=== PATIENT | female | born 1985 | race Caucasian/White ===

== ENCOUNTER → 2016-08-26 | Outpatient (CLI) | payer BC ==
--- NOTE | 2016-08-26 14:51 | DI ---
[facility] LOCATION,08/26/2016 12:44 PM: Clinical History: Patient status post section Previous Exam: None at this facility. Findings: Multiple grayscale and color Doppler sonographic images are obtained through the pelvis demonstrating a single live intrauterine gestation in vertex presentation. Amniotic fluid level is subjectively no rmal. The cervix is long and closed measuring 5.7 cm in length. Detected Doppler heart tones measure 128 beats per minute. The placenta is anterior and grade 0 without evidence of accreta. Impression: No evidence of accreta.
== END ==
LOC: US 12:40
PROVIDERS: ATTEND Obstetrics & Gynecology
DX: Z36 Encounter for antenatal screening of mother (principal); Z3A.34 34 weeks gestation of pregnancy
CPT/HCPCS: 76815

== ENCOUNTER → 2016-08-26 | Outpatient (CLI) | payer BC | LOC: MOB LAB 14:50 | PROVIDERS: ATTEND Obstetrics & Gynecology | DX: Z36 Encounter for antenatal screening of mother (principal); Z3A.34 34 weeks gestation of pregnancy | CPT/HCPCS: 87150 ==

== ENCOUNTER 2016-09-09 14:20 | Outpatient (CLI) | payer BC ==
[2016-09-09] MEDS ORDERED: NORMAL SALINE 10 ML SYRINGE FLUSH IVP PRN (14:28)
[2016-09-09 16:01] VITALS: RESP 20; TEMP 98.5
[2016-09-09 16:33] LABS: BILIRUBIN,URINE NEGATIVE (NEG); CLARITY,URINE CLEAR (CLEAR); GLUCOSE, URINE (UA) NEGATIVE (NEG); LEUKOCYTE ESTERASE ,URINE TRACE (NEG); NITRATE,URINE NEGATIVE (NEG); OCCULT BLOOD,URINE Trace-intact (NEG); PH,URINE 6.5 (5.0-8.5); PROTEIN,URINE NEGATIVE (NEG); UROBILINOGEN,URINE 0.2 EU/dL (0.2)
[2016-09-09 16:51] LABS: URINE SAMPLE TYPE CLEAN CATCH URINE
[2016-09-09 16:53] LABS: BACTERIA,URINE FEW; SQUAMOUS EPITHELIAL CELL,UR FEW
--- NOTE | 2016-09-09 22:45 | DI ---
LIMITED OBSTETRICAL ULTRASOUND FOR BIOPHYSICAL PROFILE, 09/09/2016 2:58 PM Clinical History: Abnormal NST indicating distress. Previous Exam: 08/26/2016. ADJUSTED LMP: 12/27/2015. DAVID: 20.8 cm. Heart Rate: 124 Respiration Score: 2 Fine Motor Score: 2 Gross Motor Score: 2 Amnionic Fluid Score: 2 Reading: Biophysical Profile Score: 8/8
== END 2016-09-09 16:25 | disposition home or self-care (01) ==
LOC: OBOP 14:20
PROVIDERS: ATTEND Obstetrics & Gynecology
DX: O76 Abnormality in fetal heart rate and rhythm complicating labor and delivery (principal); Z3A.36 36 weeks gestation of pregnancy
CPT/HCPCS: 59025; 76818; 81001; 81003; 99211

== ENCOUNTER 2016-09-12 09:16 | Inpatient (IN) | payer BC ==
[2016-09-12] MEDS ORDERED: Lactated Ringers 1,000 ML PRIMARY IV ONE ×2 (11:07→13:06)
[2016-09-12] MEDS ORDERED: CefOXitin Inj 2 GM in Sodium Chloride 0.9% 100 ML IV ONE (11:07)
[2016-09-12] MEDS ORDERED: Metoclopramide Inj 10 MG/2 ML VIAL IV ONE (11:07)
[2016-09-12] MEDS ORDERED: CITRIC ACID/SODIUM CITRATE 30 ML CUP PO ONE (11:07)
[2016-09-12] MEDS ORDERED: LIDOCAINE W/ SODIUM BICARB 0.5 ML SYR SUBD PRN (11:07)
[2016-09-12] MEDS ORDERED: Famotidine Inj 20 MG in Normal Saline Flush 10 ML IVP ONE (11:07)
[2016-09-12] MEDS ORDERED: NORMAL SALINE 10 ML SYRINGE FLUSH IVP PRN ×2 (11:07→14:31)
[2016-09-12] MEDS ORDERED: Lactated Ringers 1,000 ML PRIMARY IV SCH ×2 (11:15→14:45)
[2016-09-12] MEDS ORDERED: Oxytocin 20 Units + LR 1,000 ML IV SCH ×2 (11:15→15:31)
[2016-09-12] MEDS ORDERED: Lactated Ringers-OB Dept 1,000 ML ONE (11:21)
--- NOTE | 2016-09-12 11:26 | OB.PROGRES ---
Interval History: The patient is a 31-year-old 001 LMP 12/27/2015 at 37+1 weeks by LMP who presents today with contractions 2 days ago and then they stopped and then contractions waking her up this morning early overnight and then again intermittently. The patient called and was instructed to go to labor and delivery. In labor and delivery, the patient had contractions every 2-3 minutes continuously. The patient's cervix was checked and was found to be 1+ cm and soft. The patient has a previous section for arrest of dilation. The patient has been consented previously in my office for a repeat section. Otherwise, the patient has been feeling well. No headaches or abdominal pain besides the contractions. No fever or chills. The patient has a history of a for arrest of dilation. She did well postoperatively. The baby did well. Past medical history noncontributory Past surgical history , tonsils, wrist surgery No known drug allergies No tobacco, no alcohol, no drugs. Current medications a multivitamin for which she was taking 2 months prior to conception. This was a planned . [employer] history with no abnormal Pap smear history but last Pap smear long ago. No STI history. Of note, the patient has declined a survey ultrasound during this . She did allow an ultrasound for placentation which was anterior and no evidence of accreta. The patient also had a biophysical profile which was 8 out of 8 on the ultrasound. This was done within the last week. Objective - Cervical Exam Cervical Exam: 1+cm and soft by the nurse's exam [place]: Contractions every 2-3 minutes Heart Rate Interpretation Category: Category I Assessment and Plan - Assessment / Plan Additional Assessment/Plan Details: Assessment: IUP 37-1/7 week with history of section with latent labor today with regular contractions. Patient has an anterior placenta. No evidence of accreta by ultrasound. Plan: The risks, benefits, alternatives and indication of a repeat were discussed with the patient. Consent forms were signed previously. We will proceed to the operating room when I can get an operating room crew. The patient is not in any distress. The risks, that not limited to, of infection, bleeding, pain, damage to bowel, bladder, nerve, vessel, nicking the baby, blood clots to the legs or lungs, hemorrhage, blood transfusion with associated risks, risk of necrotizing fasciitis requiring more surgeries and possible transfer to a tertiary care hospital, risk of hysterectomy, low risk of , were discussed with the patient. Also, secondary to the gestational age at 37-1/7 week we did discuss the possibility that the baby may have some respiratory issues that require oxygen her CPAP. Also sometimes babies at this age even need transfer to NICU and the NICU that we uses in [facility]. The patient expressed understanding.
[2016-09-12 11:51] LABS: HEMATOCRIT 37.6 % (37.0-47.0); HEMOGLOBIN 12.9 g/dL (12.0-16.0); MEAN CORPUSCULAR HEMOGLOBIN 32.7 PG (27-31); MEAN CORPUSCULAR HGB CONC 34.3 g/dL (33-37); MEAN PLATELET VOLUME 12.1 FL (7.4-12.2); RED BLOOD COUNT 3.94 10^6/uL (4.20-5.40)
[2016-09-12] MEDS ORDERED: MORPHINE SULFATE/PF 10 MG/10 ML AMPULE ONE (12:18)
[2016-09-12] MEDS ORDERED: Sodium Chloride 0.9% 100 ML IV ONE (12:26)
--- NOTE | 2016-09-12 12:29 | OB.PROGRES ---
Objective - Labs CBC and BMP: 09/12/16 11:46 Labs - Last 24 Hours: Laboratory Results 09/12/16 Range/Units 11:46 WBC 7.08 (4.8-10.8) 10^3/uL RBC 3.94 L (4.20-5.40) 10^6/uL Hgb 12.9 (12.0-16.0) g/dL Hct 37.6 (37.0-47.0) % MCV 95.4 (81-99) FL MCH 32.7 H (27-31) PG MCHC 34.3 (33-37) g/dL RDW Std Deviation 47.6 (39-50) fL RDW Coeff of Qiana 14.2 (11.5-14.5) % Plt Count 118 L (140-350) 10*3/uL MPV 12.1 (7.4-12.2) FL - Vital Signs Last Taken Vital Signs: Vital Signs - Last Taken Temperature 98.1 F 09/12/16 09:40 Pulse Rate 19 L 09/12/16 09:40 Respiratory Rate 18 09/12/16 09:40 Blood Pressure 102/58 09/12/16 09:40 Pulse Ox 99 09/12/16 09:40 Assessment and Plan - Assessment / Plan Additional Assessment/Plan Details: Patient has mild gestational thrombocytopenia with platelets of 118,000. I ordered a CMP and call the lab. They will run a CMP.
[2016-09-12 12:39] LABS: BLOOD UREA NITROGEN 9 mg/dL (7-22); BUN/CREATININE RATIO 12.85 (6-20); CALCIUM 8.3 mg/dL (8.7-10.7); EST GLOMERULAR FILTRATION > 60 (>60 ml/min/1.73m(2))
[2016-09-12] MEDS ORDERED: ePHEDrine Inj 50 MG/ML AMP ONE (12:45)
[2016-09-12] MEDS ORDERED: PHENYLEPHRINE 10,000 MCG/1 ML VIAL ONE (12:49)
[2016-09-12] MEDS ORDERED: Sodium Chloride 0.9% vial 10 ML ONE (12:49)
[2016-09-12] MEDS ORDERED: ePHEDrine Inj 50 MG/ML AMP IVP PRN (14:31)
[2016-09-12] MEDS ORDERED: diphenhydrAMINE 50 MG/1 ML VIAL IVP PRN (14:31)
[2016-09-12] MEDS ORDERED: fentaNYL Inj 100 MCG/2 ML VIAL IVP PRN (14:31)
[2016-09-12] MEDS ORDERED: HYDROmorphone 2 MG/1 ML IVP PRN (14:31)
[2016-09-12] MEDS ORDERED: ONDANSETRON 4 MG/2 ML VIAL IVP PRN ×2 (14:31→15:31)
--- NOTE | 2016-09-12 14:54 | OB.OP.NOTE ---
Operative Report Surgeon: Abisai Separator Tender: Marvin Santiago MD Anesthesia Type: Regional (Spinal with Duramorph) Anesthesia Provider: Dane Alvarez CRNA Surgery Date: 09/12/16 Preoperative Diagnosis: IUP 37 and one sevenths weeks by LMP,. latent labor with cervical change with regular contractions. previous section who desires repeat section Postoperative Diagnosis: Same Procedure: Repeat low transverse section. Vacuum delivery of baby's head through low transverse uterine incision. Excision of old eschar Estimated Blood Loss (mL): 1,000 Fluids: 2700 mL LR. 400 mL clear yellow urine. Mefoxin 2 g IV prior to surgery Complications: None apparent Sponge lap and needle counts were correct 2 Radiofrequency test was negative for sponges or instruments Findings at Surgery: Male infant with Apgars 5 and 8 ABG showed a pH of 7.361, PCO2 of 34.5, HCO3 of 19.5, base excess -6 Baby's weight currently pending Normal uterus, bilateral fallopian tubes, bilateral ovaries Indications for the Procedure: The patient is a 31-year-old white female at 37 and one sevenths week gestation with a prior who called in this morning and stated that she had contracted 2 days prior and then woke up early this morning with contractions and then decreased in intensity. The patient then felt a couple more contractions and called in. In labor and delivery, once the external monitor and toco was placed in the correct spot, the patient was vidal every 2-3 minutes regularly and persistently. The patient's cervix was checked and it was 1 cm and posterior and thick and then was checked again just prior to the surgery and she was 2 cm and more mid position and soft. Therefore there had been cervical change but also with regular contractions even without cervical change, a was offered to the patient now even though she was 37-1/7 week gestation by last menstrual period. Description of Procedure: The consent form had been signed already after the risks, benefits, alternatives and indications of a repeat section were discussed with the patient in detail. The patient was brought to the PACU prior to surgery. An IV was started. The patient was placed back on the monitor. Category 1 heart rate tracing. The patient was readied for the operating room. The patient was then brought to the operating room area the patient underwent spinal anesthesia with Duramorph in the usual fashion. A Cote catheter was placed. The patient was then prepped and draped in the dorsal supine position in the usual fashion. A timeout was completed and the patient and procedure was identified. The patient was tested and anesthesia was found to be adequate. A Pfannenstiel skin incision was made inferior to the old scar. I then used the Bovie to the cauterized the subcutaneous tissue down to the fascia. The fascia was then nicked in the midline and extended using the Bovie and using either the Yankauer as a retractor or Kirstin's as a retractor to incise the fascia with the Bovie. Maynard clamps were then applied to the superior fascia on either side of the midline and then the rectus muscles were dissected off of the fascia both bluntly and with the Bovie. Munir clamps were then applied to the inferior fascia on either side of the midline and then the rectus muscles were dissected off the fascia both bluntly and with the Bovie. I was then able to enter the peritoneum bluntly superiorly and then stretched the peritoneum. I then placed my hand intra-abdominal and there were no adhesions between the fundus of the uterus and the anterior abdominal wall. The Kael retractor was then placed in the usual fashion. I then identified the vesicouterine flexion and using Metzenbaum scissors and pickups I sharply and then bluntly dissected the bladder inferiorly off of the uterus. I then made a low transverse uterine incision and then got to the level of the membranes and the membranes were ruptured and it was clear amniotic fluid. The uterine incision was then stretched. I then placed my hand inside the uterus and along the baby's head and with fundal pressure attempt to deliver the baby' s head but the baby's head would not deliver through the incision. I then used the bandage scissors to extend the incision on the patient's left side and still I placed my hand intrauterine and attempted to elevate the head but the head would not deliver through the uterine incision. I asked for a vacuum previously and I then placed the vacuum on the baby's occiput or what I believed to be the occiput and pumped up the vacuum to just the green marking on the vacuum and then with one pull on the vacuum there were no pop offs and the baby's head delivered through the uterine incision. I then noticed a nuchal cord and I was not sure whether or not the nuchal cord for some reason inhibited me from delivering the baby's head with my hand previously. The nuchal cord was initially tight but I was able to loosen it and then reduced the nuchal cord at that time. The mouth and nose were also bulb suctioned. The baby's posterior and anterior shoulder were then delivered and then the was delivered slowly. The patient had requested that I had delayed cord clamping of the least 1 minute. I delayed the cord clamping for about 30 seconds to maybe 35 seconds and then the cord was clamped and cut secondary to the delivery of the infant and the desire for the infant to go to the warmer along with the physician and nurses in attendance. The baby did have a lusty cry at that time. After this, a section of cord was obtained for cord gases and then cord blood was obtained. The placenta was then delivered both manually and with retraction of the umbilical cord and there were some trailing membranes which were removed with Penningtons and traction. I then cleared the uterus of all clot and debris 3 using a clean dry lap each time. All evidence of placenta and membranes were removed. And there was fairly good hemostasis. I then closed the uterus starting at the left angle of the uterine incision and in a running locking fashion used 0 Vicryl suture to close the first layer of the uterine incision. There were a few areas of bleeding that I used [id number] sutures of 0 Vicryl suture to allow for hemostasis. I then imbricated with a second layer of 0 Vicryl suture. As I was doing this, I came in contact with a few venous complexes that bled. A couple more [id number] sutures were used for hemostasis. The serosal edges of the uterine incision were bovied in a couple areas for hemostasis and then I closed the serosal edges of the uterine incision using 3- 0 Vicryl suture in a running fashion. There was good hemostasis of the uterine incision. Copious amounts of irrigation was used during this time. I then irrigated posterior to the uterus and suctioned. The uterus was then placed into the abdomen after the uterine incision was examined again and there was good hemostasis. The right gutter was irrigated and then suctioned. The left gutter was then irrigated and suctioned. There was good hemostasis. The uterus appeared normal, the fallopian tubes bilaterally appeared normal, and the ovaries appeared normal bilaterally. With good hemostasis, I then closed the peritoneum using 3-0 Vicryl suture closing the peritoneum from superior to inferior just getting the edges of the peritoneum. I then examined the fascia and subfascially and there was good hemostasis. The fascia was then closed with 0 PDS suture that was looped. I started on the patient's left side and then worked my way to the right angle of the fascia incision in the usual fashion. I then tied the PDS suture on the patient's right side at least 8-9 times ensuring a good knot. I then irrigated the subcutaneous tissue and bovied a couple areas and then closed the subcutaneous tissue using 3-0 Vicryl suture. I then bovied a couple skin edges and the eschar was removed now that it was more visible. The patient was asked that that time if she wanted the scar removed as I had asked her previously and the patient stated that it was fine to remove the scar. With good hemostasis, 3-0 Stratafix suture was used to close subcuticularly. I tried to line up the linea nigra superiorly and inferiorly as well as possible with the subcuticular stitch. Skin prep was then placed on either side of the incision and then Steri-Strips were placed over the incision. Silverlon dressing was placed and then an ABD pad and then paper tape. A radiofrequency scanner was used to ensure there were no instruments or sponges left in place. The RF test was negative. The uterus was then gently expressed of all clot and debris and dark blood was obtained and a few small clots. There was not much bleeding. There was good hemostasis. The patient was then taken to the PACU in stable condition. Plan: The patient will recover in a room after the PACU stay. Currently, the baby is in the nursery with CPAP and the baby's initial glucose was 28. A weight had not been completed yet. The baby is being observed closely. The physician caring for the has spoken with the patient's who is in the room with the baby and will speak with the patient soon.
[2016-09-12] MEDS ORDERED: Carboprost Inj 250 MCG/ML AMP IM PRN (15:31)
[2016-09-12] MEDS ORDERED: diphenhydrAMINE 50 MG/1 ML VIAL IV PRN (15:31)
[2016-09-12] MEDS ORDERED: CALCIUM CARBONATE 500 MG (TUMS) CHEWABLE TABLET PO PRN (15:31)
[2016-09-12] MEDS ORDERED: DIPH,PERTUSS,TET(ADACEL) VAC/PF 0.5 ML (Tdap) IM SCH (15:31)
[2016-09-12] MEDS ORDERED: oxyCODONE-ACETAMINOPHEN 5-325 TAB PO PRN (15:31)
[2016-09-12] MEDS ORDERED: OXYTOCIN 10 UNIT/1 ML IM ONE (15:31)
[2016-09-12] MEDS ORDERED: LANOLIN HPA 40 GM TUBE TOPICAL PRN (15:31)
[2016-09-12] MEDS ORDERED: Nalbuphine Inj 20 MG/ML Ampule IVP PRN (15:31)
[2016-09-12] MEDS ORDERED: diphenhydrAMINE 25 MG CAPSULE PO PRN (15:31)
[2016-09-12] MEDS ORDERED: Methylergonovine Tab 0.2 MG TAB PO PRN (15:31)
[2016-09-12] MEDS ORDERED: METHYLERGONOVINE MALEATE 0.2 MG/1 ML VIAL IM PRN (15:31)
[2016-09-12] MEDS ORDERED: Naloxone Inj 0.01 MG, Sodium Chloride 0.9% vial 1 ML IVP PRN ×2 (15:31)
[2016-09-12] MEDS ORDERED: MISOPROSTOL 200 MCG TABLET RECTAL ONE (15:31)
[2016-09-12] MEDS ORDERED: Famotidine Inj 20 MG in Normal Saline Flush 10 ML IVP PRN (15:31)
[2016-09-12] MEDS: KETOROLAC 30 MG/1 ML VIAL IVP PRN ×2 (15:59→22:07)
[2016-09-12] MEDS: D5-LR 1,000 ML PRIMARY IV SCH (20:27)
[2016-09-12] MEDS: NORMAL SALINE 10 ML SYRINGE FLUSH IVP PRN (22:08)
[2016-09-13] MEDS: D5-LR 1,000 ML PRIMARY IV SCH ×2 (01:23→09:27)
[2016-09-13 05:39] LABS: HEMATOCRIT 30.7 % (37.0-47.0); HEMOGLOBIN 10.5 g/dL (12.0-16.0); MEAN CORPUSCULAR HEMOGLOBIN 32.4 PG (27-31); MEAN CORPUSCULAR HGB CONC 34.2 g/dL (33-37); MEAN PLATELET VOLUME 11.6 FL (7.4-12.2); RED BLOOD COUNT 3.24 10^6/uL (4.20-5.40)
[2016-09-13] MEDS ORDERED: FERROUS FUMARATE PO SCH (09:00)
[2016-09-13] MEDS ORDERED: PNV95 PO SCH (09:00)
[2016-09-13] MEDS ORDERED: [UNRECOGNIZED DRUG - OTHER] PO SCH (09:00)
[2016-09-13] MEDS: DOCUSATE 100 MG CAPSULE PO SCH ×2 (10:08→23:40)
[2016-09-13] MEDS: Prenatal Multivitamin Tab 1 TAB TAB PO SCH (10:08)
[2016-09-13] MEDS: KETOROLAC 30 MG/1 ML VIAL IVP PRN (10:09)
[2016-09-13] MEDS: NORMAL SALINE 10 ML SYRINGE FLUSH IVP PRN (10:09)
--- NOTE | 2016-09-13 10:21 | OB.PROGRES ---
Subjective Post Op Day: 1 Pain Management: IV Toradol Cote Catheter: No Flatus: Yes Diet: Regular Branch Feeding Method: Exculsively Ambulating: Yes Concerns / Additional Information: The patient's states she is feeling well. She has been ambulating. The patient has not taken very much pain medicine. She is asking for some IV Toradol currently. The patient states that her baby is doing well. He Has been in the room overnight. Objective - General General Appearance: POSITIVE: No Acute Distress, Cooperative - Cardiovacular Cardiovascular Exam: POSITIVE: RRR, No Murmur (1/6 systolic ejection murmur) Edema: +1 Pedal Edema (Trace to 1+ edema bilaterally lower extremities below the knee) Extremities: Negative Jaspreet's - Bilaterally - Respiratory Respiratory Exam: POSITIVE: Clear to Auscultation - Bilaterally - Reflexes Clonus (indicate extremity in comment field): Absent Deep Tendon Reflex (indicate extremity in comment field): Normal but brisk +3 - Abdomen Bowel Sounds: Present (All 4 quadrants) Abdominal Wound Assessment: Silverlone Dressing (No blood noted on dressing) Assesstment / Plan Assessment / Plan: Assessment: Post operative day #1 status post repeat low transverse section. The patient is doing well. The patient has gestational thrombocytopenia. Her platelets are 88,000. Her H& H is 10 and 30. The patient has not taken very many pain medicines. Plan: I encouraged the patient to take Toradol every 6 hours for the anti- inflammatory effect. Once the patient changes from Toradol to ibuprofen, I suggested ibuprofen 800 mg 3 times a day with food or milk for at least the first 5 days for the anti- inflammatory effect as well as the analgesic effect I will switch the patient's narcotic from oxycodone to hydrocodone since the patient is not taking either currently. If the patient does want to narcotic, perhaps the hydrocodone may have less drowsiness effect on the patient and the baby. The patient has tolerated both in the past. I would like to check a CBC tomorrow to check the platelets. The patient had normal LFTs and renal function panel yesterday and the patient's blood pressures are normal. I will also check a CMP in the morning. I believe this is gestational thrombocytopenia. I will offer the patient ferrous sulfate 1 per day starting tomorrow. The patient eats a very good diet and Greenleafy vegetables are part of her diet.
--- NOTE | 2016-09-13 11:16 | CRNA.PROGR ---
Anesthesia Note Anesthesia Progress Note: She is sitting up in bed at this time. Has been ambulatory ad alanna. Discussed her anesthetic course and expectations and she has no questions or concerns at this time. She tolerated the intrathecal Morphine with no side effects, pain currently well controlled. Vital Signs (24 hrs) Temp Pulse Pulse Resp BP BP Pulse Ox 09/13/16 09:05 98.6 F 75 18 96/60 95 09/13/16 05:14 95 09/13/16 05:00 98.2 F 69 16 94/62 94 09/12/16 21:00 98.1 F 64 16 97/65 95 09/12/16 19:00 66 09/12/16 17:15 98.0 F 59 L 18 95/54 100 09/12/16 17:00 98.0 F 58 L 18 93/54 100 09/12/16 15:00 97.4 F 62 15 101/63 09/12/16 14:55 97.2 F 55 L 16 97/41 09/12/16 14:50 97.3 F 57 L 16 99/68 09/12/16 14:45 97.4 F 66 16 105/56 09/12/16 14:40 97.4 F 60 15 98/60 09/12/16 14:35 97.0 F 61 15 95/51 09/12/16 14:30 97.0 F 57 L 16 99/53 09/12/16 14:25 97.0 F 62 16 104/46 09/12/16 12:32 98.2 F 71 18 103/63 97 Laboratory Results 09/12/16 09/12/16 09/13/16 Range/Units 11:46 12:28 05:00 WBC 7.08 8.97 (4.8-10.8) 10^3/uL RBC 3.94 L 3.24 L (4.20-5.40) 10^6/uL Hgb 12.9 10.5 L (12.0-16.0) g/dL Hct 37.6 30.7 L (37.0-47.0) % MCV 95.4 94.8 (81-99) FL MCH 32.7 H 32.4 H (27-31) PG MCHC 34.3 34.2 (33-37) g/dL RDW Std Deviation 47.6 46.5 (39-50) fL RDW Coeff of Qiana 14.2 14.1 (11.5-14.5) % Plt Count 118 L 88 L (140-350) 10*3/uL MPV 12.1 11.6 (7.4-12.2) FL Sodium 133 L (135-145) meq/L Potassium 3.8 (3.8-5.2) meq/L Chloride 106 (98-112) meq/L Carbon Dioxide 18 L (23-33) meq/L Anion Gap 9 (5-20) BUN 9 (7-22) mg/dL Creatinine 0.7 (0.50-1.20) mg/dL Estimated GFR > 60 (>60 ml/min/1.73m(2)) BUN/Creatinine Ratio 12.85 (6-20) Glucose 61 L (78-110) mg/dL Calculated Osmolality 272.0 (267-292) mOsm/kg Calcium 8.3 L (8.7-10.7) mg/dL Total Bilirubin 0.5 (0.3-1.2) mg/dL AST 19 (8-39) IU/L ALT 17 (9-52) IU/L Alkaline Phosphatase 114 (38-126) IU/L Total Protein 5.3 L (6.1-8.0) g/dL Albumin 3.0 L (3.5-4.8) g/dL Globulin 2.3 L (2.50-4.10) g/dL Albumin/Globulin Ratio 1.30 (1.3-2.0) mg/g Blood Type A POSITIVE Antibody Screen Negative
[2016-09-13] MEDS ORDERED: IBUPROFEN 800 MG TABLET PO ONE (11:28)
[2016-09-13] MEDS: IBUPROFEN 800 MG TABLET PO PRN ×2 (11:30→19:29)
[2016-09-13] MEDS: HYDROcodone-APAP 5 MG -325 MG TABLET PO PRN ×2 (12:25→20:05)
[2016-09-14] MEDS: HYDROcodone-APAP 5 MG -325 MG TABLET PO PRN ×3 (00:46→12:21)
[2016-09-14] MEDS: IBUPROFEN 800 MG TABLET PO PRN ×2 (04:22→12:21)
[2016-09-14 04:31] LABS: BASOPHILS # (AUTO) 0.03 10*3/UL; BASOPHILS % (AUTO) 0.4 % (0-1); EOSINOPHILS # (AUTO) 0.11 10*3/UL; EOSINOPHILS % (AUTO) 1.4 % (0-8); HEMATOCRIT 28.8 % (37.0-47.0); HEMOGLOBIN 9.6 g/dL (12.0-16.0); LYMPHOCYTES # (AUTO) 1.45 10*3/uL; MEAN CORPUSCULAR HEMOGLOBIN 31.9 PG (27-31); MEAN CORPUSCULAR HGB CONC 33.3 g/dL (33-37); MEAN PLATELET VOLUME 11.3 FL (7.4-12.2); MONOCYTES # (AUTO) 0.51 10*3/UL (0.3-0.8); MONOCYTES % (AUTO) 6.3 % (5-15); NEUTROPHILS # (AUTO) 5.99 10*3/UL; NEUTROPHILS % (AUTO) 73.8 % (50-80); RED BLOOD COUNT 3.01 10^6/uL (4.20-5.40)
[2016-09-14 04:32] LABS: PLATELET MORPHOLOGY COMMENT NORMAL MORPHOLOGY (NORM); RBC MORPHOLOGY COMMENT NORMAL MORPHOLOGY (NORM); WBC MORPHOLOGY COMMENT NORMAL MORPHOLOGY (NORM)
[2016-09-14 04:37] LABS: BLOOD UREA NITROGEN 9 mg/dL (7-22); BUN/CREATININE RATIO 12.85 (6-20); CALCIUM 8.1 mg/dL (8.7-10.7); EST GLOMERULAR FILTRATION > 60 (>60 ml/min/1.73m(2)); SERUM ALBUMIN 2.3 g/dL (3.5-4.8)
[2016-09-14 07:26] VITALS: RESP 16; TEMP 97.9
[2016-09-14] MEDS: DOCUSATE 100 MG CAPSULE PO SCH (08:14)
[2016-09-14] MEDS: Prenatal Multivitamin Tab 1 TAB TAB PO SCH (08:14)
--- NOTE | 2016-09-14 12:28 | OB.PROGRES ---
Subjective Post Op Day: 2 Pain Management: PO Cote Catheter: No Flatus: Yes Diet: Regular Feeding Method: Exculsively Ambulating: Yes Concerns / Additional Information: The patient states that she and the baby are doing well and she desires to go home now. Her pain is well controlled with the ibuprofen and then the hydrocodone as needed. Assesstment / Plan Assessment / Plan: Postoperative day #2 status post repeat low transverse section doing well. Gestational thrombocytopenia with platelets increased to 99,000 today from 88, 000. Mild postoperative anemia with H&H of 8 and 28 The patient is doing very well and desires to go home today. Plan: Discharge home today Usual postoperative instructions. The patient's Silverlon dressing was replaced today since her were several wrinkles. The Steri-Strips were replaced also because they were moist and came off as the old Silverlon dressing was removed. Half-inch Steri-Strips were placed. The patient should have an appointment at the end of this week to have an incision check. If the dressing comes off, remove the entire dressing. If the Steri-Strips are removed, please contact our office so that Steri-Strips can be replaced. Ibuprofen 800 mg 1 by mouth 3 times a day with food or milk for 5 days then 3 times a day as needed Hydrocodone/Tylenol 1-2 by mouth every 6-8 hours when necessary pain Ferrous sulfate 325 mg 1 tablet daily for 30 days Colace 100 mg 1 by mouth daily to twice a day when necessary constipation The patient should continue a multivitamin daily. Contraception will be discussed more at the 6 week visit. The patient should follow-up with me also at 6 weeks for a checkup. The patient should return for fever, wound drainage, redness around her wound, or not feeling well. Every day the patient should still slightly better.
== END 2016-09-14 13:35 | disposition home or self-care (01) | DRG 766 ==
LOC: OBOP 09:16 → OBOR 10:52 → MED/SURG 15:03 → OBIP 16:07 → UNDODISIN 09-14 13:35
PROVIDERS: ADMIT Obstetrics & Gynecology; ATTEND Obstetrics & Gynecology
PROC: 10D07Z6 Extraction of Products of Conception, Vacuum, Via Natural or Artificial Opening (ICD-10-PCS; principal; 2016-09-12 12:30)
PROC: 10D00Z1 Extraction of Products of Conception, Low, Open Approach (ICD-10-PCS; principal; 2016-09-12 12:30)
DX: O34.211 Maternal care for low transverse scar from previous cesarean delivery (principal); N85.8 Other specified noninflammatory disorders of uterus; Z3A.37 37 weeks gestation of pregnancy; Z37.0 Single live birth
CPT/HCPCS: 36415; 59025; 80053; 81003; 85025; 85027; 86850; 86900; 86901; 94150; 94761; 99211; A4216; J1885; J2370; J2765; J7050; J7120

== ENCOUNTER → 2016-09-19 | Outpatient (CLI) | payer BC ==
[2016-09-19 10:48] LABS: BILIRUBIN,URINE NEGATIVE (NEG); CLARITY,URINE CLEAR (CLEAR); COLOR,URINE YELLOW; GLUCOSE, URINE (UA) NEGATIVE (NEG); NITRATE,URINE NEGATIVE (NEG); OCCULT BLOOD,URINE SMALL (NEG); PROTEIN,URINE NEGATIVE (NEG); UROBILINOGEN,URINE 0.2 mg/dL (0.2)
[2016-09-19 11:12] LABS: URINE SAMPLE TYPE CLEAN CATCH URINE
[2016-09-19 11:13] LABS: SQUAMOUS EPITHELIAL CELL,UR RARE; WBC,URINE 0-3
== END ==
LOC: MOB LAB 10:26
PROVIDERS: ATTEND Obstetrics & Gynecology
DX: R30.0 Dysuria (principal)
CPT/HCPCS: 81001